=== PATIENT | female | born 1990 | race Caucasian/White ===

== ENCOUNTER 2022-08-25 10:36 | Emergency (ER) | payer SELFPAY ==
[2022-08-25 12:50] LABS: BLOOD UREA NITROGEN,BUN 17 mg/dL (7.0-18.0); CARBON DIOXIDE,CO2 23.4 mmol/L (21.0-32.0); CHLORIDE,CL 104 mmol/L (98-107); GLUCOSE RANDOM 89 mg/dL (74-106); SODIUM,NA 139 mmol/L (136-145)
[2022-08-25 12:51] LABS: ESTIMATED GFR 121 mL/min (>60)
== END 2022-08-25 13:10 | disposition left against medical advice (07) ==
LOC: MW.ED 10:36
DX: M25.572 Pain in left ankle and joints of left foot (principal); G89.29 Other chronic pain; D50.9 Iron deficiency anemia, unspecified; F17.290 Nicotine dependence, other tobacco product, uncomplicated; F15.90 Other stimulant use, unspecified, uncomplicated
CPT/HCPCS: 36415; 73610-26-LT; 73610-LT; 80053; 85025; 85652; 86140; 99283

== ENCOUNTER 2022-11-26 16:58 | Emergency (ER) | payer MEDICAID ==
[2022-11-26] MEDS ORDERED: Ibuprofen 600 MG Tab PO ONE (18:44)
[2022-11-26] MEDS ORDERED: Cephalexin 500 MG Cap PO ONE (18:44)
== END 2022-11-26 18:56 | disposition home or self-care (01) ==
LOC: MW.ED 16:58
DX: K02.9 Dental caries, unspecified (principal)
CPT/HCPCS: 99282; A9270

== ENCOUNTER → 2023-11-21 | Emergency (ER) | payer SELFPAY | END | disposition home or self-care (01) | LOC: MW.ED 17:03 | DX: L03.116 Cellulitis of left lower limb (principal); Z75.8 Other problems related to medical facilities and other health care; Z79.899 Other long term (current) drug therapy; Z90.49 Acquired absence of other specified parts of digestive tract | CPT/HCPCS: 99283 ==

== ENCOUNTER 2023-11-24 13:37 | Emergency (ER) | payer SELFPAY | END 2023-11-24 15:58 | disposition home or self-care (01) | LOC: MW.ED 13:37 | DX: M79.89 Other specified soft tissue disorders (principal); M79.672 Pain in left foot; Z75.8 Other problems related to medical facilities and other health care; Z79.899 Other long term (current) drug therapy | CPT/HCPCS: 73630-26-LT; 73630-LT; 99283 ==

== ENCOUNTER 2024-10-05 08:42 | Emergency (ER) | payer SELFPAY ==
[2024-10-05] MEDS: Acetaminophen 325 MG Tab PO ONE (08:57)
[2024-10-05] MEDS: Amoxicillin/Clavulanate K 875-125 MG Tab PO ONE (08:57)
== END 2024-10-05 09:04 | disposition home or self-care (01) ==
LOC: MW.ED 08:42
DX: K04.7 Periapical abscess without sinus (principal); Z90.49 Acquired absence of other specified parts of digestive tract; Z79.899 Other long term (current) drug therapy
CPT/HCPCS: 99283; A9270

== ENCOUNTER 2024-10-06 08:34 | Emergency (ER) | payer SELFPAY | END 2024-10-06 09:09 | disposition home or self-care (01) | LOC: MW.ED 08:34 | DX: R22.0 Localized swelling, mass and lump, head (principal); Z79.899 Other long term (current) drug therapy | CPT/HCPCS: 99282; 99283 ==

== ENCOUNTER 2024-10-09 14:02 | Emergency (ER) | payer SELFPAY ==
[2024-10-09] MEDS: Lidocaine 2% Viscous Solution 15 ML UD PO STA (15:51)
[2024-10-09] MEDS: Benzocaine 20% Topical Spray UD MUCMEM ONE (15:51)
== END 2024-10-09 17:35 | disposition home or self-care (01) ==
LOC: MW.ED 14:02
DX: K04.7 Periapical abscess without sinus (principal); K02.62 Dental caries on smooth surface penetrating into dentin; Z79.899 Other long term (current) drug therapy
CPT/HCPCS: 41800; 99282; A9270

== ENCOUNTER 2025-05-13 13:26 | Emergency (ER) | payer BC ==
[2025-05-13] MEDS: Benzocaine 20% Topical Spray UD MUCMEM ONE (14:33)
[2025-05-13] MEDS: Lidocaine 2% Viscous Solution 15 ML UD PO ONE (14:34)
[2025-05-13] MEDS: Amoxicillin/Clavulanate K 875-125 MG Tab PO ONE (14:34)
== END 2025-05-13 14:40 | disposition home or self-care (01) ==
LOC: MW.ED 13:26
DX: K04.7 Periapical abscess without sinus (principal); Z90.49 Acquired absence of other specified parts of digestive tract; Z79.899 Other long term (current) drug therapy; Z75.3 Unavailability and inaccessibility of health-care facilities
CPT/HCPCS: 99283; A9270; J3490; 99284